=== PATIENT | female | born 1970 | race Caucasian/White ===

== ENCOUNTER 2016-10-01 03:50 | Emergency (ER) | payer OTHER ==
[~2016-10-01] VITALS: Ht 175.3 cm; Wt 68.0 kg
[~2016-10-01 03:50] MED LIST: ADVIL LIQUI-GE200 MG PO; AUGMENTIN 875-1 EACH PO; DIPHENHYDRAMINE25 MG PO; FERROUS SULFAT325 MG PO; FLOVENT DISKUS50 MCG INH; LEVAQUIN750 MG PO; PREDNISONE20 MG PO; PROAIR HFA8.5 GM INH; PROVENTIL HFA6.7 GM INH; SUDAFED 12-HOU120 MG PO; TYLENOL325 MG PO; ZOFRAN ODT4 MG SL; ZYRTEC10 MG PO
[2016-10-01] MEDS ORDERED: ALLEGRA-D 24 H1 EACH PO (04:09)
[2016-10-01] MEDS ORDERED: LEVOTHYROXINE100 MCG PO (04:09)
[2016-10-01] MEDS ORDERED: TRAMADOL HCL50 MG PO (04:11)
== END 2016-10-01 04:30 | disposition home or self-care (01) ==
LOC: ED 03:50
DX: M75.21 Bicipital tendinitis, right shoulder (principal); J45.909 Unspecified asthma, uncomplicated; E03.9 Hypothyroidism, unspecified; F17.200 Nicotine dependence, unspecified, uncomplicated; Z90.710 Acquired absence of both cervix and uterus; Z88.5 Allergy status to narcotic agent; Z88.8 Allergy status to other drugs, medicaments and biological substances; Z79.51 Long term (current) use of inhaled steroids; Z79.899 Other long term (current) drug therapy
CPT/HCPCS: 99283

== ENCOUNTER 2019-09-21 08:46 | Emergency (ER) | payer OTHER ==
[~2019-09-21] VITALS: Ht 175.3 cm; Wt 68.0 kg
--- OUTSIDE RECORDS SUMMARY | ~2019-09-21 | XMS | Encounter Summary ---
Demographics + + + | Address | [address] | | | [place] [address] | + + + | Home Phone | | + + + | Preferred Language | Unknown | + + + | Marital Status | Single | + + + | Moravian Affiliation | Unknown | + + + | Race | Unknown | + + + | Ethnic Group | Unknown | + + + Author + + + | Author | [facility] | | | and [place] | + + + | Organization | [facility] | | | and [place] | + + + | Address | Unknown | + + + | Phone | Unavailable | + + + Support + + +---------+ + | Name | Relationship | Address | Phone | + + +---------+ + | Jac Marcum | ECON | Unknown | | + + +---------+ + | Falguni | ECON | Unknown | | | [place] | | | | + + +---------+ + Care Team Providers + +------+ + | Care Jammer Operator Name | Role | Phone | + +------+ + | Lan Smith PCP | | | MD | | | + +------+ + Encounter Details +--------+ + + + + | Date | Type | Department | Care Team | Description | +--------+ + + + + | 12/16/ | Abstract | [facility] | [place], | | | 2014 | | PULMONARY [address] | Geni Duarte MD | | | | | [place], | | | | | | [place] [address] | | | | | | [phone] | | | +--------+ + + + + Social History + + + +--------+------+ | Tobacco Use | Types | Packs/Day | Years | Date | | | | | Used | | + + + +--------+------+ | Current Every Day | Cigarettes | 0.2 | 18 | | | Smoker | | | | | + + + +--------+------+ + + | Comments: She wants to do it on her own at her own pace | + + + + +---------+ + | Alcohol Use | Drinks/Week | oz/Week | Comments | + + +---------+ + | Yes | 8 Standard drinks | 6.7 | | | | or equivalent | | | + + +---------+ + + + + | Sex Assigned at | Date Recorded | | | | + + + | Not on file | | + + + documented as of this encounter Plan of Treatment Not on filedocumented as of this encounter Procedures + +--------+ + + + | Procedure Name | Priori | Date/Time | Associated Diagnosis | Comments | | | ty | | | | + +--------+ + + + | EXTERNAL LAB: SODIUM | Routin | 08/18/2014 | | Results for this | | | e | 1:32 AM | | procedure are in the | | | | PDT | | results section. | + +--------+ + + + | EXTERNAL LAB: BUN | Routin | 08/18/2014 | | Results for this | | | e | | | procedure are in the | | | | | | results section. | + +--------+ + + + | EXTERNAL LAB: | Routin | 08/18/2014 | | Results for this | | GLUCOSE | e | | | procedure are in the | | | | | | results section. | + +--------+ + + + | EXTERNAL LAB: | Routin | 08/18/2014 | | Results for this | | TROPONIN T | e | | | procedure are in the | | | | | | results section. | + +--------+ + + + | EXTERNAL LAB: | Routin | 08/18/2014 | | Results for this | | CALCIUM | e | | | procedure are in the | | | | | | results section. | + +--------+ + + + | EXTERNAL LAB: CARBON | Routin | 08/18/2014 | | Results for this | | DIOXIDE | e | | | procedure are in the | | | | | | results section. | + +--------+ + + + | EXTERNAL LAB: | Routin | 08/18/2014 | | Results for this | | CHLORIDE | e | | | procedure are in the | | | | | | results section. | + +--------+ + + + | EXTERNAL LAB: | Routin | 08/18/2014 | | Results for this | | POTASSIUM | e | | | procedure are in the | | | | | | results section. | + +--------+ + + + | EXTERNAL LAB: CBC | Routin | 08/18/2014 | | Results for this | | | e | | | procedure are in the | | | | | | results section. | + +--------+ + + + | EXTERNAL LAB: EGFR | Routin | 08/18/2014 | | Results for this | | | e | | | procedure are in the | | | | | | results section. | + +--------+ + + + | EXTERNAL LAB: | Routin | 08/18/2014 | | Results for this | | CREATININE | e | | | procedure are in the | | | | | | results section. | + +--------+ + + + | CBC WITH | Routin | 08/18/2014 | | Results for this | | DIFFERENTIAL | e | | | procedure are in the | | | | | | results section. | + +--------+ + + + | BASIC METABOLIC | Routin | 08/18/2014 | | Results for this | | PANEL | e | | | procedure are in the | | | | | | results section. | + +--------+ + + + documented in this encounter Results External Lab: Sodium (08/18/2014 1:32 AM PDT) + +-------+ + + + | Component | Value | Ref Range | Performed | Pathologist | | | | | At | Signature | + +-------+ + + + | Sodium, | 138 | 138 - 143 | EXTERNAL | | | External | | | LAB | | + +-------+ + + + + + | Resulting Agency Comment | + + | [facility] | + + + +---------+ + + | Performing | Address | City/State/Zipcode | Phone Number | | Organization | | | | + +---------+ + + | EXTERNAL LAB | | | | + +---------+ + + CBC with Differential (08/18/2014) + +-------+ + + + | Component | Value | Ref Range | Performed | Pathologist | | | | | At | Signature | + +-------+ + + + | [facility] | 32.0 | 26.0 - 33.0 pg | | | + +-------+ + + + | [facility]CH[facility] | 33.0 | 30.0 - 36.0 % | | | + +-------+ + + + | % Basophils | 0.7 | 0.0 - 2.0 % | | | + +-------+ + + + + + | Specimen | + + | Blood specimen | | (specimen) | + + Basic Metabolic Panel (08/18/2014) + +-------+ + + + | Component | Value | Ref Range | Performed | Pathologist | | | | | At | Signature | + +-------+ + + + | Anion Gap | 10 | 7 - 21 mmol/L | [facility] | | | | | [facility] | | | [facility] | | | [facility] - | | | | | | LAB[facility]ATORY | | + +-------+ + + + | Bun/Creatin | 13.2 | 6 - 28.8 | [facility] | | ine | | | [facility] | | | | | | [facility] | | | | [facility] - | | | | | | LABORATORY | | + +-------+ + + + + + | Specimen | + + | Blood specimen | | (specimen) | + + + + + + + | Performing | Address | City/State/Zipcode | Phone Number | | Organization | | | | + + + + + | [facility] | [address] | [place] | [phone] | | [facility] | | [id number], [facility] | | | - LABORATORY | | | | + + + + + External Lab: ENRIKE (08/18/2014) + +-------+ + + + | Component | Value | Ref Range | Performed | Pathologist | | | | | At | Signature | + +-------+ + + + | ENRIKE, | 12 | 6 - 23 | EXTERNAL | | | External | | | LAB | | + +-------+ + + + + + | Resulting Agency Comment | + + | [facility] | + + + +---------+ + + | Performing | Address | City/State/Zipcode | Phone Number | | Organization | | | | + +---------+ + + | EXTERNAL LAB | | | | + +---------+ + + External Lab: Glucose (08/18/2014) + +-------+ + + + | Component | Value | Ref Range | Performed | Pathologist | | | | | At | Signature | + +-------+ + + + | Glucose, | 91 | 70 - 100 | EXTERNAL | | | External | | | LAB | | + +-------+ + + + + + | Resulting Agency Comment | + + | [facility] | + + + +---------+ + + | Performing | Address | City/State/Zipcode | Phone Number | | Organization | | | | + +---------+ + + | EXTERNAL LAB | | | | + +---------+ + + External Lab: Troponin T (08/18/2014) + +--------+ + + + | Component | Value | Ref Range | Performed | Pathologist | | | | | At | Signature | + +--------+ + + + | Troponin T, | <0.010 | 0 - 0.01 | EXTERNAL | | | External | | | LAB | | + +--------+ + + + + + | Resulting Agency Comment | + + | [facility] | + + + +---------+ + + | Performing | Address | City/State/Zipcode | Phone Number | | Organization | | | | + +---------+ + + | EXTERNAL LAB | | | | + +---------+ + + External Lab: Calcium (08/18/2014) + +-------+ + + + | Component | Value | Ref Range | Performed | Pathologist | | | | | At | Signature | + +-------+ + + + | Calcium, | 9.2 | 8.4 - 10.2 | EXTERNAL | | | External | | | LAB | | + +-------+ + + + + + | Resulting [facility] Comment | + + | [facility] | + + + +---------+ + + | Performing | Address | City/State/Zipcode | Phone Number | | Organization | | | | + +---------+ + + | EXTERNAL LAB | | | | + +---------+ + + External Lab: Carbon Dioxide (08/18/2014) + +-------+ + + + | Component | Value | Ref Range | Performed | Pathologist | | | | | At | Signature | + +-------+ + + + | Carbon | 25 | 19 - 31 | EXTERNAL | | | Dioxide, | | | LAB | | | External | | | | | + +-------+ + + + + + | Resulting Agency Comment | + + | [facility] | + + + +---------+ + + | Performing | Address | City/State/Zipcode | Phone Number | | Organization | | | | + +---------+ + + | EXTERNAL LAB | | | | + +---------+ + + External Lab: Chloride (08/18/2014) + +-------+ + + + | Component | Value | Ref Range | Performed | Pathologist | | | | | At | Signature | + +-------+ + + + | Chloride, | 107 | 95 - 112 | EXTERNAL | | | External | | | LAB | | + +-------+ + + + + + | Resulting Agency Comment | + + | [facility] | + + + +---------+ + + | Performing | Address | City/State/Zipcode | Phone Number | | Organization | | | | + +---------+ + + | EXTERNAL LAB | | | | + +---------+ + + External Lab: Potassium (08/18/2014) + +-------+ + + + | Component | Value | Ref Range | Performed | Pathologist | | | | | At | Signature | + +-------+ + + + | Potassium, | 3.6 | 3.6 - 5.1 | EXTERNAL | | | External | | | LAB | | + +-------+ + + + + + | Resulting Agency Comment | + + | [facility] | + + + +---------+ + + | Performing | Address | City/State/Zipcode | Phone Number | | Organization | | | | + +---------+ + + | EXTERNAL LAB | | | | + +---------+ + + External Lab: CBC (08/18/2014) + + + + + + | Component | Value | Ref Range | Performed | Pathologist | | | | | At | Signature | + + + + + + | WBC, | 7.7 | 4.5 - 11 | EXTERNAL | | | External | | | LAB | | + + + + + + | HGB, | 15.3 | 12 - 16 | EXTERNAL | | | External | | | LAB | | + + + + + + | HCT, | 46.8 (A) | 35 - 45 | EXTERNAL | | | External | | | LAB | | + + + + + + | PLT, | 177 | 140 - 440 | EXTERNAL | | | External | | | LAB | | + + + + + + | Neutrophils | 78 | 39 - 80 | EXTERNAL | | | %, | | | LAB | | | External | | | | | + + + + + + | Lymphocytes | 14.9 (A) | 24 - 44 | EXTERNAL | | | %, | | | LAB | | | External | | | | | + + + + + + | Monocytes | 5.3 | 0 - 12 | EXTERNAL | | | %, External | | | LAB | | + + + + + + | Eosinophils | 1.1 | 0 - 6 | EXTERNAL | | | %, | | | LAB | | | External | | | | | + + + + + + | RBC, | 4.74 | 3.8 - 5.1 | EXTERNAL | | | External | | | LAB | | + + + + + + | MCV, | 99 | 81 - 99 | EXTERNAL | | | External | | | LAB | | + + + + + + | RDW, | 13.5 | 10.5 - 15 | EXTERNAL | | | External | | | LAB | | + + + + + + + + | Resulting Agency Comment | + + | [facility] | + + + +---------+ + + | Performing | Address | City/State/Zipcode | Phone Number | | Organization | | | | + +---------+ + + | EXTERNAL LAB | | | | + +---------+ + + External Lab: eGFR (08/18/2014) + +-------+ + + + | Component | Value | Ref Range | Performed | Pathologist | | | | | At | Signature | + +-------+ + + + | eGFR, | 68 | | EXTERNAL | | | External | | | LAB | | + +-------+ + + + + + | Specimen | + + | Blood specimen | | (specimen) | + + + + | Resulting [facility] Comment | + + | [facility] | + + + +---------+ + + | Performing | Address | City/State/Zipcode | Phone Number | | Organization | | | | + +---------+ + + | EXTERNAL LAB | | | | + +---------+ + + External Lab: Creatinine (08/18/2014) + +-------+ + + + | Component | Value | Ref Range | Performed | Pathologist | | | | | At | Signature | + +-------+ + + + | Creatinine, | 0.91 | 0.6 - 1.35 | EXTERNAL | | | External | | | LAB | | + +-------+ + + + + + | Specimen | + + | Blood specimen | | (specimen) | + + + + | Resulting Agency Comment | + + | [facility] | + + + +---------+ + + | Performing | Address | City/State/Zipcode | Phone Number | | Organization | | | | + +---------+ + + | EXTERNAL LAB | | | | + +---------+ + + documented in this encounter Visit Diagnoses Not on filedocumented in this encounter"
--- OUTSIDE RECORDS SUMMARY | ~2019-09-21 | XMS | Encounter Summary ---
Demographics + + + | Address | [address] | | | [place] [address] | + + + | Home Phone | | + + + | Preferred Language | Unknown | + + + | Marital Status | Single | + + + | Temple Affiliation | Unknown | + + + | Race | Unknown | + + + | Ethnic Group | Unknown | + + + Author + + + | Author | [facility] | | | and [place] | + + + | Organization | [facility] | | | and [place] | + + + | Address | Unknown | + + + | Phone | Unavailable | + + + Support + + +---------+ + | Name | Relationship | Address | Phone | + + +---------+ + | Jac Marcum | ECON | Unknown | | + + +---------+ + | Nilda/Valdez | ECON | Unknown | | | [place] | | | | + + +---------+ + Care Team Providers + +------+ + | Care Nursing Home Administrator Name | Role | Phone | + +------+ + | Marie Hummel PA-C | PCP | | + +------+ + Reason for Visit +---------+--------+ + | Reason | Onset | Comments | | | Date | | +---------+--------+ + | Results | 06/16/ | PFTs | | | 2014 | | +---------+--------+ + Encounter Details +--------+ + + + + | Date | Type | Department | Care Team | Description | +--------+ + + + + | 06/16/ | Telephone | [facility] | [place], | Results (PFTs) | | 2014 | | PULMONARY [address] | Geni Duarte MD | | | | | [place], | | | | | | [place] [address] | | | | | | [phone] | | | +--------+ + + + [...] + + documented as of this encounter Miscellaneous Notes Telephone Encounter - Ting Bejarano RN - 06/17/2014 9:04 AM PDTCalled Kimmy and nani yed this message. Okay per patient. She will start the Flovent and call if not covered by he r insurance. elephon e Encounter - Geni Mims MD - 06/16/2014 11:38 AM PDTPlease let the patient know her PFTs are consistent with asthma. She has obstruction before albuterol, and not after wi th a significant response to the albuterol (I defer with the reading). Pulmonary function tests were performed on May 31, 2014 and were reviewed and interpreted in clinic today. They show moderate obstruction prior to administration of inhaled broncho dilator and are technically normal after administration of inhaled bronchodilator with a sig nificant increase in FEV1 with administration of albuterol. Lung volumes are normal and diff usion capacity is mildly reduced. I would like her to start on an inhaled steroid to see if this helps her symptoms in additi on to the Ventolin. The Ventolin she will continue to use as needed. The inhaled steroid she will use twice daily, and she must rinse her mouth after use. I am ordering Flovent 220mcg 1 inhalation twice daily. If her insurance does not cover this, she should call as we will find an alternative. documented in t his encounter Plan of Treatment Not on filedocumented as of this encounter Visit Diagnoses Not on filedocumented in this encounter"
--- OUTSIDE RECORDS SUMMARY | ~2019-09-21 | XMS | Clinical Summary ---
Demographics + + + | Address | [address] | | | [place] [address] | + + + | Home Phone | | + + + | Preferred Language | Unknown | + + + | Marital Status | Single | + + + | Confucianism Affiliation | Unknown | + + + | Race | Unknown | + + + | Ethnic Group | Unknown | + + + Author + + + | Author | [facility] | | | and [place] | + + + | Organization | [facility] | | [...] Team Providers + +------+ + | Care Brake Lining Finisher Asbestos Name | Role | Phone | + +------+ + | Lan Smith | PCP | | | MD | | | + +------+ + Allergies + + + + + + | Active Allergy | Reactions | Severity | Noted | Comments | | | | | Date | | + + + + + + | Meperidine | Nausea And Vomiting | | 04/30/19 | | | | | | 15 | | + + + + + + | Morphine | | | 04/30/19 | | | | | | 15 | | + + + + + + Medications + + + +---------+------+------+-------+ | Medication | Sig | Dispensed | Refills | Star | End | Statu | | | | | | t | Date | s | | | | | | Date | | | + + + +---------+------+------+-------+ | albuterol | Inhale 2 puffs into | 1 | 5 | 02/2 | | Activ | | (VENTOLIN HFA) 90 | the lungs every 6 | Inhaler | | 5/20 | | e | | mcg/puff inhaler | hours as needed for | | | 15 | | | | | Wheezing or | | | | | | | | Shortness of Breath. | | | | | | + + + +---------+------+------+-------+ | fluticasone | Inhale 1 puff into | 1 | 3 | 03/2 | | Activ | | (FLOVENT HFA) 220 | the lungs 2 times | Inhaler | | 9/20 | | e | | mcg/puff inhaler | daily. | | | 15 | | | + + + +---------+------+------+-------+ | Cetirizine HCl | Take 1 capsule by | 30 | 11 | 06/0 | | Activ | | (ZYRTEC) 10 MG | mouth Daily. | capsule | | 1/20 | | e | | liqui-gel | | | | 15 | | | + + + +---------+------+------+-------+ Active Problems + + + | Problem | Noted Date | + + + | Tobacco abuse | 05/10/2014 | + + + | Pulmonary nodule seen on imaging study | 05/10/2014 | + + + | Asthma | 05/10/2014 | + + + | Fibrocystic breast disease | | + + + | Seasonal allergies | | + + + Immunizations + + + + | Name | Administration Dates | Next Due | + + + + | INFLUENZA PF 20 Y OR | 03/24/2014 | | | >,TRIVALENT | | | | RECOMBINANT | | | + + + + | PNEUMOCOCCAL | 03/24/2014 | | | POLYSACCHARIDE | | | | 23-VALENT (PPSV23) | | | + + + + | TETANUS TOXOID | 03/24/2014 | | | ABSORBED, | | | | (ADOL/ADULT) | | | + + + + Family History + + +------+ + | Medical History | Relation | Name | Comments | + + +------+ + | Allergies | Father | | | + + +------+ + | Diabetes | Father | | | + + +------+ + | Hypertension | Father | | | + + +------+ + | Arthritis | Mother | | | + + +------+ + | Diabetes | Mother | | | + + +------+ + | Hypertension | Mother | | | + + +------+ + | Thyroid disease | Mother | | | + + +------+ + | Allergies | Paternal | | | | | Grandfath | | | | | er | | | + + +------+ + | Asthma | Son | | exercise induced | + + +------+ + + +------+--------+ + | Relation | Name | Status | Comments | + +------+--------+ + | Father | | Alive | | + +------+--------+ + | Mother | | Alive | | + +------+--------+ + | Paternal Grandfather | | | | + +------+--------+ + | Son | | Alive | | + +------+--------+ + Social History + + + +--------+------+ | Tobacco Use | Types | Packs/Day | Years | Date | | | | | Used | | + + + +--------+------+ | Current Every Day | Cigarettes | 0.2 | 18 | | | Smoker | | | | | + + + +--------+------+ + + | Tobacco Cessation: Ready to Quit: Yes; Counseling Given: Yes | | Comments: She wants to do it [...] on file | | + + + Last Filed Vital Signs + + + + + | Vital Sign | Reading | Time Taken | Comments | + + + + + | Blood Pressure | 110/68 | 08/19/2014 9:30 AM | | | | | PDT | | + + + + + | Pulse | 66 | 08/19/2014 9:30 AM | | | | | PDT | | + + + + + | Temperature | 37.4 C (99.4 F) | 05/10/2014 10:27 AM | | | | | PST | | + + + + + | Respiratory Rate | 14 | 08/19/2014 9:30 AM | | | | | PDT | | + + + + + | Oxygen Saturation | 97% | 08/19/2014 9:30 AM | room air | | | | PDT | | + + + + + | Inhaled Oxygen | - | - | | | Concentration | | | | + + + + + | Weight | 66 kg (145 lb 6.4 | 08/19/2014 9:30 AM | | | | oz) | PDT | | + + + + + | Height | 170.2 cm (5' 7") | 08/19/2014 9:30 AM | | | | | PDT | | + + + + + | Body Mass Index | 22.77 | 08/19/2014 9:30 AM | | | | | PDT | | + + + + + Plan of Treatment + + + + + | Health Maintenance | Due Date | Last | Comments | | | | Done | | + + + + + | Vaccine: | | 03/24/19 | | | Dtap/Tdap/Td (1 - | 2 | 15 | | | Tdap) | | | | + + + + + | Cervical Cancer | | | | | Screening (Pap) | 3 | | | + + + + + | Breast Cancer | | | | | Screening | 8 | | | + + + + + | Vaccine: Influenza | | 03/24/19 | | | (Season Ended) | 0 | 15 | | + + + + + Results Not on filefrom Last 3 Months Insurance + +--------+ +--------+ +---------+--------+ | Payer | Benefi | Subscriber | Effect | Phone | Address | Type | | | t Plan | ID | gage | | | | | | / | | Dates | | | | | | Group | | | | | | + +--------+ +--------+ +---------+--------+ | [employer] | [employer] | [id number] | | [phone] | | Medica | | MEDICAID HMO | HEALTH | | [phone]-[id number] | 1 | | id | | | MDCD | | esent | | | | | | HMO [place] | | | | | | + +--------+ +--------+ +---------+--------+ + +--------+ +--------+ + + | Guarantor Name | Accoun | Relation to | Date | Phone | Billing Address | | | t Type | Patient | of | | | | | | | | | | + +--------+ +--------+ + + | Kimmy Marcum | Person | Self | [birth year] | [address] | | | al/Fam | | 1971 | [phone] | [address] [place] | | | desire | | | 0 (Home) | [id number] | | | | | | [phone] | | | | | | | 2 (Work) | | + +--------+ +--------+ + + Advance Directives + + + + + | Type | Date Recorded | Patient | Explanation | | | | Medication Nurse | | + + + + + | Power of | | | | | Conditioner Tumbler | | | | + + + + + | Advance | | | | | Directive | | | | + + + + +
--- OUTSIDE RECORDS SUMMARY | ~2019-09-21 | XMS | Encounter Summary ---
Demographics + + + | Address | [address] | | | [place] [address] | + + + | Home Phone | | + + + | Preferred Language | Unknown | + + + | Marital Status | Single | + + + | Scientology Affiliation | Unknown | + + + | Race | Unknown | + + + | Ethnic Group | Unknown | + + + Author + + + | Author | [facility] | | | and [place] | + + + | Organization | [facility] | | | and [place] | + [...] Team Providers + +------+ + | Care Metal Cut Off Saw Tender Name | Role | Phone | + +------+ + | Lan Smith | PCP | | | MD | | | + +------+ + Reason for Referral Diagnostic/Screening (Routine) +--------+--------+ + + + + | Status | Reason | Specialty | Diagnoses / | Referred By | Referred To | | | | | Procedures | Contact | Contact | +--------+--------+ + + + + | Closed | | Radiology | Diagnoses | | [address] | | | | | Pulmonary | [place], | [address] | | | | | nodule seen | Geni B, | [place], | | | | | on imaging | MD [address] | [place] [address] | | | | | study | [address] | Phone: | | | | | Procedures | [place], | [phone] | | | | | CT Chest wo | [place] [address] | Fax: | | | | | Contrast | | [phone] | +--------+--------+ + + + + Reason for Visit +--------+ + | Reason | Comments | +--------+ + | Other | f/u Pulmonary nodule | +--------+ + Evaluate & Treat (Routine) +--------+--------+ + + + + | Status | Reason | Specialty | Diagnoses / | Referred By | Referred To | | | | | Procedures | Contact | Contact | +--------+--------+ + + + + | Closed | | Pulmonary | Diagnoses | | Felicita, | | | | Disease / | Unspecified | Shaheed, | Geni Duarte, | | | | Pulmonology | | Marie Oliveros, | | | | | | asthma(493.9 | PA-C [address] | | | | | | 0) | [address] | | | | | | Procedures | Ave | | | | | | F/U | [place], | | | | | | | [place] | | | | | | | [address] | | | | | | | Phone: | | | | | | | [phone] | | | | | | | Fax: | | | | | | | [phone] | | +--------+--------+ + + + + Encounter Details +--------+---------+ + + + | Date | Type | Department | Care Team | Description | +--------+---------+ + + + | 08/19/ | Office | [facility] | [place], | Asthma, mild | | 2015 | Visit | PULMONARY [address] | Geni Duarte MD | persistent, | | | | [place], | | uncomplicated; | | | | [place] [address] | | Pulmonary nodule | | | | [phone] | | seen on imaging | | | | | | study; T wave | | | | | | inversion in EKG | +--------+---------+ + + + Social History + + [...] + + documented as of this encounter Last Filed Vital Signs + + + [...] + + + + | Temperature | - | - | | + + + + + [...] | | + + + + + documented in this encounter Patient Instructions Patient Instructions Geni Mims MD - 08/19/2014 9:55 AM PDTI would try nasal s ami spray or gel to help keep your nose moist to help prevent the bleeding. Have EKG done at [facility] and follow up with Dr. Smith. This may be a normal variant however. Stay on Flovent current dose. Have lab done today to check Vitamin D level. Try taking cetirizine 10mg daily. documented in this encounter Progress Notes Geni Mims MD - 08/19/2014 9:35 AM PDTFormatting of this note might be differe nt from the original. Pulmonary Follow Up HPI Kimmy Marcum is a 44 y.o. female patient of Lan Smith here today for f ollow up of a pulmonary nodule and asthma. At their last visit, we had ordered a follow up CT scan and PFTs. We then started her on Fl ovent. Since their last visit she feels like she has been doing better. She has not had an y acute illnesses. She notes that in the last month she has not had any of her episodes where she has been yadira lly short of breath or coughing a lot. She carries the albuterol with her all the time. She has not used the albuterol in the last month. She is not waking up at night with shortness o f breath. She does note that she is getting in to her allergy season and is worried she may need to use it. She is currently on a regimen of Flovent 220 mcg 1 puff twice daily for about 2 months. Baltaazr blake does feel like this medication regimen is working for them. She returns today for routine follow up. She notes she has smoking less. She notes that the gum made her cheek swell up, so she is n ot using it. She is smoking less, and working on quitting on her own. She is smoking only wh en she gets really agitated at work. She was out the other night with friends, and they had cocktails, and they were smoking, but she did not. She does not cough chronically. She does bring up some mucous. She notes he r nose has been running, and she has been sneezing. She takes Zyrtec and Benadryl when she has a hard time breathing. She does not have symptoms of heartburn or reflux. Past Medical History Past Medical History Diagnosis Date Cervical dysplasia s/p hysterectomy Pyelonephritis 03/21/2014 Fibrocystic breast disease Seasonal allergies Past Surgical History Past Surgical History Procedure Laterality Date section 1993 Hysterectomy 2000 for cervical dysplasia and pain Hernia repair 1996 or possibly prolapse as it was internal? 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 [employer] Social History Main Topics Smoking status: Current Every Day Smoker -- 0.20 packs/day for 18 years Types: Cigarettes Smokeless tobacco: None Comment: She wants to do it on her own at her own pace Alcohol Use: 4.0 oz/week 8 drink(s) per week Drug Use: No Sexual Activity: None Other Topics Concern None Social History [place]ative [place] With: her son and son's girlfriend [place] lived in: [place] Exposure to toxic chemicals: rubbing alcohol for cleaning Exposure to asbestos: no Exposure to tuberculosis: no Has had a PPD or Quantiferon before: no Has pets at home: cat Has ever owned birds: no Other animal exposures: friend's dogs Hobbies: fishing, camping, horseback riding Allergies: Allergies Allergen Reactions Meperidine Nausea And Vomiting Morphine Medications: Outpatient Encounter Prescriptions as of 08/19/2014 Medication Sig Dispense Refill albuterol (VENTOLIN HFA) 90 mcg/puff inhaler Inhale 2 puffs into the lungs every 6 hour s as needed for Wheezing or Shortness of Breath. 1 Inhaler 5 fluticasone (FLOVENT HFA) 220 mcg/puff inhaler Inhale 1 puff into the lungs 2 times lea ly. 1 Inhaler 3 No facility-administered encounter medications on file as of 08/19/2014. Review of Systems: General: []Weight loss/gain (over 10 lbs) []Fever/chills/sweats []Night sweats EENT: [x]Hearing loss []Vision loss/change [x]Sinus congestion/nasal drainage [x]Nosebleeds []Hoarseness Cardiac: []Chest pain []Palpitations/heart racing []Swelling of legs/ankles []Waking up at night s hort of breath []Difficulty sleeping flat Gastrointestinal: []Nausea/vomiting []Difficulty swallowing []Heartburn/acid reflux []Loss of appetite []Abd ominal pain Urologic: []Blood in urine []Frequent urination at night []Burning/painful urination []Difficulty wit h urination Has been having shoulder pain since yesterday, seen in ER. Had some finding on her EKG as w ell, T wave inversions V1-3. Objective BP 110/68 | Pulse 66 | Resp 14 | Ht 1.702 m (5' 7") | Wt 65.953 kg (145 lb 6.4 oz) | BMI 22 .77 kg/m2 | SpO2 97% RA General Appearance: Alert, cooperative, no distress, appears stated age Head: Normocephalic, without obvious abnormality, atraumatic Eyes: PERRL, conjunctiva clear, no scleral icterus, EOM's intact Ears: Normal TM's, external auditory canals, normal acuity Nose: Nares normal, septum midline, mucosa notable for dired blood on right, edematous on l eft Mouth: No oral lesions or exudate Neck: Supple, symmetrical, no adenopathy Lungs: No accessory muscle use, breath sounds are clear to auscultation bilaterally, no w heezes, crackles or rhonchi Chest Wall: No deformity Heart: Regular rate and rhythm, no murmur, rub or gallop Abdomen: Soft, non-tender, non-distended Extremities: No cyanosis, clubbing, or edema Pulses: Radial pulses 2+ and symmetric Skin: Warm and dry Lymph nodes: Cervical and supraclavicular nodes normal Data: Pulmonary function tests were performed on May 31, 2014 and were reviewed and interpreted in clinic today. They show moderate obstruction prior to administration of inhaled bronchod ilator and are technically normal after administration of inhaled bronchodilator with a sign ificant increase in FEV1 with administration of albuterol. Lung volumes are normal and diffu ebony capacity is mildly reduced. Immunization History Administered Date(s) Administered INFLUENZA, TRIVALENT PRESERVATIVE FREE (PED/ADOL/ADULT) 03/24/2014 PNEUMOCOCCAL POLYSACCHARIDE 23-VALENT (PPSV23) 03/24/2014 TETANUS TOXOID ABSORBED, (ADOL/ADULT) 03/24/2014 Assessment ICD-9-CM 1. Asthma, mild persistent, uncomplicated 493.90 Doing well on Flovent. Having some onset o f allergy symptoms, so I recommended addition of cetirizine daily, and checking vitamin D, w ith addition of supplementation if needed (data suggests that correction of low vitamin D le vels helps control asthma and allergies). Vitamin D, 25-Hydroxy 2. Pulmonary nodule seen on imaging study 793.11 Due for follow up of 4mm nodule in [place] r, which we will do at her follow up appointment. CT Chest wo Contrast 3. T wave inversion in EKG 794.31 Seen on EKG at ER visit for should pain. Seen in up to 0. 5% of normal 44 year olds in a study quoted in a [place] population and more common in women than men. I suggested a repeat EKG to ensure lead placement accurate and it has not evolved , getting labs checked in ER to make sure no electrolyte abnormalities, and ER EKG for aneesh rison. Further follow up with PCP. ECG 12 lead Plan 1.Check vitamin D 25 [place] level. 2.Check EKG at [facility]. 3.Obtain ER EKG and labs for review and comparison. 4. Continue Flovent at current dose. 5. Take cetirizine 10mg daily. 6. Repeat chest CT scan with next visit. She was advised to call if new pulmonary symptoms were to develop. Return to clinic in January, or sooner with concerns. CC: Lan Smith MD, JOHN Moncada Portions of this report were transcribed using voice recognition software. Every effort wa s made to ensure accuracy; however, inadvertent computerized carbon capture power plant manager errors may be pre sent. documented in t his encounter Plan of Treatment + +---------+--------+ + + | Name | Type | Priori | Associated Diagnoses | Order Schedule | | | | ty | | | + +---------+--------+ + + | ECG 12 lead | ECG | Routin | T wave inversion | 1 Occurrences | | | | e | in EKG | starting 08/19/2014 | | | | | | until 08/20/2015 | + +---------+--------+ + + | CT Chest wo Contrast | Imaging | Routin | Pulmonary nodule | Expected: | | | | e | seen on imaging | 01/22/2015, Expires: | | | | | study | 08/19/2015 | + +---------+--------+ + + documented as of this encounter Procedures + +--------+ + + + | Procedure Name | Priori | Date/Time | Associated Diagnosis | Comments | | | ty | | | | + +--------+ + + + | VITAMIN D, | Routin | 08/19/2014 | Asthma, mild | Results for this | | DEFICIENCY SCREEN | e | 10:28 AM | persistent, | procedure are in the | | (25-HYDROXY) | | PDT | uncomplicated | results section. | + +--------+ + + + | LABS - EXTERNAL SCAN | | 08/18/2014 | | Results for this | | | | 12:00 AM | | procedure are in the | | | | PDT | | results section. | + +--------+ + + + | ECG - EXTERNAL SCAN | | 08/18/2014 | | Results for this | | | | 12:00 AM | | procedure are in the | | | | PDT | | results section. | + +--------+ + + + documented in this encounter Results Vitamin D, 25-Hydroxy (08/19/2014 10:28 AM PDT) + +--------+ + + + | Component | Value | Ref Range | Performed | Pathologist | | | | | At | Signature | + +--------+ + + + | Vitamin D, | 20 (L) | 30 - 80 ng/mL | [facility] | | | 25 Hydroxy | | | [facility] | [facility] - | | | | | | [facility]ATORY | | + +--------+ + + + + + | Specimen | + + | Blood | + + + + + + + | Performing | Address | City/State/Zipcode | Phone Number | | Organization | | | | + + + + + | [facility] | [address] | [place] | [phone] | | [facility] | | [address] | | | - LABORATORY | | | | + + + + + LABS - EXTERNAL SCAN (08/18/2014 12:00 AM PDT) + + + | Narrative | Performed At | + + + | Ordered by an | | | unspecified provider. | | + + + ECG - EXTERNAL SCAN (08/18/2014 12:00 AM PDT) + + + | Narrative | Performed At | + + + | Ordered by an | | | unspecified provider. | | + + + documented in this encounter Visit Diagnoses + + | Diagnosis | + + | Asthma, mild persistent, uncomplicated | + + | Pulmonary nodule seen on imaging study | + + | T wave inversion in EKG Nonspecific abnormal electrocardiogram (ECG) (EKG) | + + documented in this encounter
--- OUTSIDE RECORDS SUMMARY | ~2019-09-21 | XMS | Encounter Summary ---
Demographics + + + | Address | [address] | | | [place] [address] | + + + | Home Phone | | + + + | Preferred Language | Unknown | + + + | Marital Status | Single | + + + | Presybeterian Affiliation | Unknown | + + + | Race | Unknown | + + + | Ethnic Group | Unknown | + + + Author + + + | Author | [facility] | | | and [place] | + + + | Organization | [facility] | | | [...] Team Providers + +------+ + | Care Solar Hot Water Installer Name | Role | Phone | + +------+ + | Wero Gerard MD | PCP | | + +------+ + Encounter Details +--------+ + + + + | Date | Type | Department | Care Team | Description | +--------+ + + + + | 04/30/ | Abstract | [facility] [place] | Felicita, | | | 2014 | | PULMONARY [address] | Geni Duarte MD | | | | | [place], | | | | | | [place] [address] | | | | | | [phone] | | | +--------+ + + + + Social History + +-------+ +--------+------+ | Tobacco Use | Types | Packs/Day | Years | Date | | | | | Used | | + +-------+ +--------+------+ | Never Assessed | | | | | + +-------+ +--------+------+ + + + | Sex Assigned at | Date Recorded | | | | + + + | Not on file | | + + + documented as of this encounter Last Filed Vital Signs + + + + + | Vital Sign | Reading | Time Taken | Comments | + + + + + | Blood Pressure | 119/85 | 04/15/2014 1:00 PM | | | | | PST | | + + + + + | Pulse | 85 | 04/15/2014 1:00 PM | | | | | PST | | + + + + + | Temperature | 36.6 C (97.8 F) | 04/15/2014 1:00 PM | | | | | PST | | + + + + + | Respiratory Rate | 18 | 04/15/2014 1:00 PM | | | | | PST | | + + + + + | Oxygen Saturation | - | - | | + + + + + | Inhaled Oxygen | - | - | | | Concentration | | | | + + + + + | Weight | 64.9 kg (143 lb) | 04/15/2014 1:00 PM | | | | | PST | | + + + + + | Height | 170.2 cm (5' 7") | 04/15/2014 1:00 PM | | | | | PST | | + + + + + | Body Mass Index | 22.4 | 04/15/2014 1:00 PM | | | | | PST | | + + + + + documented in this encounter Plan of Treatment Not on filedocumented as of this encounter Visit Diagnoses Not on filedocumented in this encounter
--- OUTSIDE RECORDS SUMMARY | ~2019-09-21 | XMS | Encounter Summary ---
Demographics + + + | Address | [address] | | | [place] [address] | + + + | Home Phone | | + + + | Preferred Language | Unknown | + + + | Marital Status | Single | + + + | Confucianist Affiliation | Unknown | + + + | Race | Unknown | + + + | Ethnic Group | Unknown | + + + Author + + + | Author | [facility] | | | and [place] | + + + | Organization | [facility] | | | and [...] Team Providers + +------+ + | Care Ward Secretary Name | Role | Phone | + +------+ + | Marie Hummel PA-C | PCP | | + +------+ + Reason for Visit + +--------+ + | Reason | Onset | Comments | | | Date | | + +--------+ + | Medication Problem | 05/15/ | | | | 2014 | | + +--------+ + Encounter Details +--------+ + + + + | Date | Type | Department | Care Team | Description | +--------+ + + + + | 05/15/ | Telephone | [facility] [place] | [place], | Medication Problem | | 2014 | | PULMONARY [address] | Geni Duarte MD | | | | | [place], | | | | | | [place] [address] | | | | | | [phone] | | | +--------+ + + + [...] this encounter Miscellaneous Notes Telephone Encounter - Bela Mcclain RN - 05/15/2014 3:59 PM PSTReceived fax from [facility] [place] that ProAir is not covered by Kimmy's insurance but Ventolin is. Discussed with Dr Adams. He said it's the same medication so it would be acceptable to ask the phar [facility] to dispense Ventolin instead of ProAir. [facility] signed by Bela Mcclain RN at 05/15/2014 4:20 PM PSTdocumented in this encounter Plan of Treatment Not on filedocumented as of this encounter Visit Diagnoses Not on filedocumented in this encounter"
--- OUTSIDE RECORDS SUMMARY | ~2019-09-21 | XMS | Encounter Summary ---
Demographics + + + | Address | [address] | | | [place] [address] | + + + | Home Phone | | + + + | Preferred Language | Unknown | + + + | Marital Status | Single | + + + | Adventism Affiliation | Unknown | + + + | Race | Unknown | + + + | Ethnic Group | Unknown | + + + Author + + + | Author | [facility] | | | and Jordonana | + + + | Organization | [facility] | | | [...] Team Providers + +------+ + | Care Retail Parts Pro Name | Role | Phone | + +------+ + | Marie Hummel PA-C | PCP | | + +------+ + Reason for Visit + + + | Reason | Comments | + + + | Establish Care | | + + + Evaluate & Treat (Routine) +--------+--------+ + + + + | Status | Reason | Specialty | Diagnoses / | Referred By | Referred To | | | | | Procedures | Contact | Contact | +--------+--------+ + + + + | Closed | | Pulmonary | Diagnoses | Moustapha, | Felicita, | | | | Disease / | Solitary | Erwin | Geni Duarte, | | | | Pulmonology | pulmonary | MD Kike | [address] | | | | | nodule | [address] | | | | | Procedures | [place] | [facility] | | | | | ME OFFICE | [facility] | [place] [address] | | | | | OUTPATIENT | [place] [address] | | | | | | [address] | [address] | | | | | | MINUTES [place]- | [address] | | | | | | | Phone: | | | | | | | [phone] | | | | | | | Fax: | | | | | | | [phone] | | +--------+--------+ + + + + Encounter Details +--------+---------+ + + + | Date | Type | Department | Care Team | Description | +--------+---------+ + + + | 05/10/ | Office | [facility] [place] | [place], | Pulmonary nodule | | 2015 | Visit | PULMONARY [address] | Geni Duarte MD | seen on imaging | | | | [place], | | study (Primary Dx); | | | | [place] [address] | | Asthma, mild | | | | [phone] | | intermittent, with | | | | | | acute exacerbation; | | | | | | Tobacco abuse | +--------+---------+ + + + Social History [...] + + + | Blood Pressure | 116/82 | 05/10/2014 10:27 AM | | | | | PST | | + + + + + | Pulse | 77 | 05/10/2014 10:27 AM | | | | | PST | | + + + + + | Temperature | 37.4 C (99.4 F) | 05/10/2014 10:27 AM | | | | | PST | | + + + + + | Respiratory Rate | - | - | | + + + + + | Oxygen Saturation | 98% | 05/10/2014 10:27 AM | | | | | PST | | + + + + + | Inhaled Oxygen | - | - | | | Concentration | | | | + + + + + | Weight | 65.5 kg (144 lb 8 | 05/10/2014 10:27 AM | | | | oz) | PST | | + + + + + | Height | 170.2 cm (5' 7") | 05/10/2014 10:27 AM | | | | | PST | | + + + + + | Body Mass Index | 22.63 | 05/10/2014 10:27 AM | | | | | PST | | + + + + + documented in this encounter Patient Instructions Patient Instructions Geni Mims MD - 05/10/2014 11:32 AM PSTStart with the zahraa annette gum at the 2mg dose, and you can even try breaking them in half it is too strong. You c hew the gum until soft and then stick it in your lip. I will order breathing tests for you to have at [place]. I am going to order a ProAir inhaler for you to use 2 puffs every 6 hours as needed for the cough and shortness of breath. Take doxycycline 100mg twice daily for 7 days. Take prednisone 20mg daily for 5 days. We will plan for a repeat CT scan in about 9 months, but we will see you back in about 3 mo nths. Inhaler Use The inhaler that you were prescribed contains a potent medication. It should only be used a s directed. The medicine in your inhaler must be breathed deeply into your lungs in order fo r it to work. It will not work at all if it only reaches your mouth and throat. Follow the i nstructions below for best results. And remember to follow your Asthma Action Plan as given to you by your doctor. 1. Keep your inhaler at room temperature. 2. Hold the inhalerso that the part that goes into your mouth is at the bottom. 3. Shake the inhaler well and remove the cap. 4. Breathe out fully through your mouth. 5. Place the inhaler in your mouth and close your lips tightly around it. (Or hold the inha ler 1 to 2 inches from your open mouth if told to do so by your healthcare provider.) 6. Squeeze the inhaler as you breathe in slowly through your mouth for a few seconds, drawi ng the medicine deep into your lungs. 7. Hold your breath for up to10 seconds. Then breathe out slowly. 8. If you have been advised to take two puffs, wait one minute, then repeat steps 3-7 above . Replace the cap when done. 9. If you were prescribed both a steroid inhaler and a bronchodilator inhaler, use the bron chodilator first to open the air passages. Wait 5 minutes, then use the steroid inhaler. 10. Rinse your mouth with water and spit it out (especially after using a steroid inhaler) 11. A special chamber ( spacer ) may be prescribedthat attaches to your inhaler (Aero chamber and other brands). This increases the amount of medicine that goes to your lungs. It also improves how well each treatment works. Ask your doctor about this if you did not rece gage one. Keep It Clean Remove the metal canister and do not immerse it in water. Then clean the plastic mouthpiece , cap, and spacer if you have one, by rinsing them well in warm running water for 30 to 60 s econds. Shake off excess water and allow the mouthpiece to dry completely (overnight is anna mmended). If you need the inhaler before the mouthpiece is dry, shake off excess water, repl poly canister, and test spray two times (away from the face). This should be done once each d ay of use. This is very important if you are using a steroid inhaler in order to prevent thr ush. This is an infection that occurs in the mouth. Warning A steroid inhaler is used to prevent an asthma attack. Do not use this to treat an acute wh eezing episode. It might even make an acute attack worse. Use only bronchodilator inhalers t o treat an acute asthma attack (albuterol, Vanceril, Proventil, and others). If you find that your medicine is not working and you need to use it more often than prescr ibed, this could be a sign that your asthma is getting worse. Go to the emergency room or [facility] care right away. An asthma attack is easiest to treat in the early stages before it bec omes severe! Get Prompt Medical Attention Get prompt medical attention if any of the following occur: Increased wheezing or shortness of breath Need to use your inhalers more often than usual without relief Fever of 100.4F (38C) or higher, or as directed by your health care provider Coughing up lots of dark-colored or bloody sputum (mucus) Chest pain with each breath Blue lips or fingernails Peak flow reading less than 50 percent of your normal best [id number] [employer] [place]. [address] [place] [address], [place] [address]. All righ ts reserved. This information is not intended as a substitute for professional medical care. Always follow your healthcare professional's instructions. documented in this encounter Progress Notes Geni Mims MD - 05/10/2014 10:49 AM PSTFormatting of this note might be differe nt from the original. Pulmonary Consult Referring Provider: JOHN Blake HPI Kimmy Marcum is a 43 y.o. female patient of Marie Ace here today for evaluation of a pulmonary nodule. She notes that she they first presented with symptoms of fevers, chills, pain and vomiting. Her symptoms started on 03/16and continued to progress and on 03/21 she went in to the ER for evaluation. She was diagnosed with pyelonephritis and admitted to [facility]. T his led to a abdominal CT scan, which showed a 4mm irregular right basilar lateral nodule. Estevan hernandezanneliese have not had previous chest imaging. She did have a have follow chest x-ray done as well , which showed a right lateral basilar pulmonary nodule. They do not typically have symptoms of shortness of breath. She notes she has a cold that s he got 2 weeks ago and has had some shortness of breath and coughing. She does not typically get shortness of breath when she gets colds. Currently they are able to walk many miles at their own pace on level ground. They do not have a chronic cough. She does not typically cough for a prolonged period of ti me when she has a cold or get recurrent episodes of bronchitis. They are able to do their own bathing and dressing at home. They are able to do their own c ooking and cleaning. 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 They have not had to be hospitalized for breathing issues in the past, and have not require d intubation in the past. She has not been diagnosed with lung disease in the past. Past Medical History Past Medical History Diagnosis Date Cervical dysplasia s/p hysterectomy Pyelonephritis History of fibrocystic disease of breast Past Surgical History Past Surgical History Procedure Laterality Date section 1993 Hysterectomy 2000 for cervical dysplasia and pain Hernia repair 1997 or possibly prolapse as it was internal? 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 [employer] Social History Main Topics Smoking status: Current Every Day Smoker -- 0.20 packs/day for 18 years Types: Cigarettes Smokeless tobacco: None Comment: She wants to do it on her own at her own pace Alcohol Use: 4.0 oz/week 8 drink(s) per week Drug Use: No Sexual Activity: None Other Topics Concern None Social History Narrative Lives: in [place] With: her son and son's girlfriend G[place] up: in [place] previously lived in: [place] Exposure to toxic chemicals: rubbing alcohol for cleaning Exposure to asbestos: no Exposure to tuberculosis: no Has had a PPD or Quantiferon before: no Has pets at home: cat Has ever owned birds: no Other animal exposures: friend's dogs Hobbies: fishing, camping, horseback riding Allergies: Allergies Allergen Reactions Meperidine Nausea And Vomiting Morphine Medications: No outpatient encounter prescriptions on file as of 05/10/2014. No facility-administered encounter medications on file as of 05/10/2014. Review of Systems: General: []Weight loss/gain (over 10 lbs) []Fever/chills/sweats []Night sweats Hematologic: [x]Bleeding/bruising tendencies- Bruises easily []History of blood transfusion [x]Anemia- Since a teenager []Enlarged lymph nodes EENT: []Hearing loss []Vision loss/change [x]Sinus congestion/nasal drainage- Has seasonal a llergies to locust trees and wheat dust []Nosebleeds []Hoarseness Cardiac: [x]Chest pain- When the wind blows and she coughs a lot []Palpitations/heart racing []Swel ling of legs/ankles []Waking up at night short of breath []Difficulty sleeping flat Gastrointestinal: []Nausea/vomiting []Difficulty swallowing []Heartburn/acid reflux []Loss of appetite []Abdo hao pain Musculoskeletal: []Joint stiffness/swelling []Joint pain []Back pain []Arthritis []Gout Urologic: []Blood in urine []Frequent urination at night []Burning/painful urination []Difficulty wit h urination Neurological: []Headaches []Seizures []Memory loss or confusion []Numbness or tingling in feet or hands Psychiatric: []Depression []Anxiety/panic attacks []Suicidal ideation Sleep: []Difficulty falling asleep []Waking up at night frequently []Snoring []Stop breathing in their sleep []Fall asleep frequently, or excessively tired Objective BP 116/82 | Pulse 77 | Temp(Src) 37.4 C (99.4 F) (Tympanic) | Ht 1.702 m (5' 7") | Wt 65.545 kg (144 lb 8 oz) | BMI 22.63 kg/m2 | SpO2 98% General Appearance: Alert, cooperative, no distress, appears stated age Head: Normocephalic, without obvious abnormality, atraumatic Eyes: PERRL, conjunctiva clear, no scleral icterus, EOM's intact Ears: Normal TM's, external auditory canals, normal acuity Nose: Nares normal, septum midline, mucosa mildy edematous with some turbinate hypertrophy, dried yellow mucous Mouth: No oral lesions or exudate Neck: Supple, symmetrical, no adenopathy Lungs: No accessory muscle use, breath sounds are generally clear to auscultation bilater ally with good air movement, slightly coarse on exhalation, no wheezes, crackles or rhonchi Chest Wall: No deformity Heart: Regular rate and rhythm, no murmur, no rub or gallop Abdomen: Soft, non-tender, non-distended Extremities: No cyanosis, clubbing, or edema Pulses: Radial pulses 2+ and symmetric Skin: Warm and dry Lymph nodes: Cervical and supraclavicular nodes normal Data: Chest x-ray done March 21, 2014 was reviewed and interpreted in clinic today. It shows a 4 mm right basilar nodule. Abdominal CT scan done March 21, 2014 was reviewed and interpreted in clinic today. It sandra ws an irregular right basilar nodule that measured 5mm by my measurements. Labs: 03/23/2014 CBC normal BMP normal Urine culture lea sensitive e. coli Wero Gerard's notes were reviewed in clinic today. Immunization History Administered Date(s) Administered PNEUMOCOCCAL POLYSACCHARIDE 23-VALENT (PPSV23) 03/24/2014 TETANUS TOXOID ABSORBED, (ADOL/ADULT) 03/24/2014 TRIVALENT INFLUENZA, PRESERATIVE FREE (PED/ADOL/ADULT) 03/24/2014 Assessment 1. Pulmonary nodule seen on imaging study - 4 (5 by my measurement) mm irregular right basi lar nodule in a 43 year old smoker. Based on this, recommendation is for repeat chest CT sca n in 6-12 months, and we will do this at 9 months. 2. Asthma, mild intermittent, with acute exacerbation - Notes increased cough since recent URI. I suspect she has asthma given history of asthma and some cough and wheezing in respons e to allergens. I cannot exclude COPD given smoking history and question of some mild emphys sree on CT scan. I will treat with low dose prednisone and antibiotics. We will also start as needed albuterol and check full PFTs. 3. Tobacco abuse - Ongoing we discussed methods of quitting. She smokes very little. I sugg ested nicotine gum at 2mg dose, or even using half of a piece if she has side effects from a full piece. Plan 1. Start nicotine gum, 2mg dose, or even use 1/2 piece if having side effects. 2. Check [facility] PFTs at [facility]. 3. Start ProAir 2 puffs inhaled every 6 hours as needed. 4. Doxycycline 100mg twice daily for 7 days. 5. Prednisone 20mg daily for 5 days. 6. Repeat chest CT scan planned for 9 months from now. CC: JOHN Livingston documented in t his encounter Plan of Treatment + + +--------+ + + | Name | Type | Priori | Associated Diagnoses | Order Schedule | | | | ty | | | + + +--------+ + + | * [facility] ([facility] | Respiratory | [facility] | Asthma, mild | 1 Occurrences | | Shadia's)Pulmonary | Care | | intermittent, with | starting 05/10/2014 | | Function Testing - | | | acute exacerbation | until 05/10/2015 | | AMB Referral | | | | | + + +--------+ + + documented as of this encounter Visit Diagnoses + + | Diagnosis | + + | Pulmonary nodule seen on imaging study - Primary | + + | Asthma, mild intermittent, with acute exacerbation | + + | Tobacco abuse Tobacco use disorder | + + documented in this encounter
--- OUTSIDE RECORDS SUMMARY | ~2019-09-21 | XMS | Encounter Summary ---
Demographics + + + | Address | [address] | | | [place] [address] | + + + | Home Phone | | + + + | Preferred Language | Unknown | + + + | Marital Status | Single | + + + | Quaker Affiliation | Unknown | + + + | Race | Unknown | + + + | Ethnic Group | Unknown | + + + Author + + + | Author | [facility] | | | and Jordonana | + + + | Organization | [facility] | | | [...] Team Providers + +------+ + | Care Control Clerk Name | Role | Phone | + +------+ + | Marie Hummel PA-C | PCP | | + +------+ + Reason for Visit + +--------+ + | Reason | Onset | Comments | | | Date | | + +--------+ + | Appointment | 06/10/ | | | | 2014 | | + +--------+ + Encounter Details +--------+ + + + + | Date | Type | Department | Care Team | Description | +--------+ + + + + | 06/10/ | Telephone | [facility] | Felicita, | Appointment | | 2014 | | PULMONARY [address] | Geni Duarte MD | | | | | [place], | | | | | | [place] [address] | | | | | | [phone] | | | +--------+ + + + [...] this encounter Miscellaneous Notes Telephone Encounter - Benita Way - 06/10/2014 8:42 AM PDTSpoke with patient 05/28/14 . She has not had her PFT at [facility] yet. I asked patient to please call them to vernell bustos. documented in this e ncounter Plan of Treatment Not on filedocumented as of this encounter Visit Diagnoses Not on filedocumented in this encounter"
--- OUTSIDE RECORDS SUMMARY | ~2019-09-21 | XMS | Encounter Summary ---
Demographics + + + | Address | [address] | | | [place] [address] | + + + | Home Phone | | + + + | Preferred Language | Unknown | + + + | Marital Status | Single | + + + | Sabianism Affiliation | Unknown | + + + | Race | Unknown | + + + | Ethnic Group | Unknown | + + + Author + + + | Author | [facility] | | | and Jordonana | + + + | Organization | [facility] | | | [...] Team Providers + +------+ + | Care Boilermaker Ship Name | Role | Phone | + +------+ + | Wero Gerard MD | PCP | | + +------+ + Reason for Visit + +--------+ + | Reason | Onset | Comments | | | Date | | + +--------+ + | Appointment | 04/29/ | consult | | | 2015 | | + +--------+ + Encounter Details +--------+ + + + + | Date | Type | Department | Care Team | Description | +--------+ + + + + | 04/29/ | Telephone | [facility] [place] | Felicita, | Appointment | | 2015 | | PULMONARY [address] | Geni Duarte MD | (consult) | | | | [place], | | | | | | [place] [address] | | | | | | [phone] | | | +--------+ + + + [...] this encounter Miscellaneous Notes Telephone Encounter - Apryl Do - 04/30/2014 9:19 AM PSTPatient is scheduled f or 05-10-14. elephone Encounter - Apryl Do - 04/29/2014 4:09 PM PSTLeft voice message to schedule p atient a [facility] consult with Dr. Mims. If patient is to call back please schedule in the n ext available. documented in this encounter Plan of Treatment Not on filedocumented as of this encounter Visit Diagnoses Not on filedocumented in this encounter"
--- OUTSIDE RECORDS SUMMARY | ~2019-09-21 | XMS | Encounter Summary ---
Demographics + + + | Address | [address] | | | [place] [address] | + + + | Home Phone | | + + + | Preferred Language | Unknown | + + + | Marital Status | Single | + + + | Muslim Affiliation | Unknown | + + + | Race | Unknown | + + + | Ethnic Group | Unknown | + + + Author + + + | Author | [facility] | | | and [place] | + + + | Organization | [facility] | | | [...] Team Providers + +------+ + | Care Verifying Specialist Name | Role | Phone | + +------+ + | Lan Smith | PCP | | | MD | | | + +------+ + Reason for Visit +---------+--------+ + | Reason | Onset | Comments | | | Date | | +---------+--------+ + | Results | 08/20/ | labs | | | 2014 | | +---------+--------+ + Encounter Details +--------+ + + + + | Date | Type | Department | Care Team | Description | +--------+ + + + + | 08/20/ | Telephone | [facility] [place] | [place], | Results (labs) | | 2015 | | PULMONARY [address] | Geni Duarte MD | | | | | [place], | | | | | | [place] [address] | | | | | | [phone] | | | +--------+ + + + [...] encounter Miscellaneous Notes Telephone Encounter - Ting Bejarano, THOR - 08/20/2014 2:01 PM PDTCalled Kimmy and billyi sed per Dr Mims that the labs performed at [facility] on July look fine. Kimmy stated that she was seen for her shoulder pain at [facility] and is being sent for a heart test. docubrooke mtz in this encounter Plan of Treatment Not on filedocumented as of this encounter Visit Diagnoses Not on filedocumented in this encounter"
[~2019-09-21 08:46] MED LIST changes: +ALLEGRA-D 24 H1 EACH PO; +LEVOTHYROXINE100 MCG PO; +TRAMADOL HCL50 MG PO
[2019-09-21] MEDS ORDERED: NORCO 5-325 TA1 EACH PO (11:13)
[2019-09-21] MEDS ORDERED: PREDNISONE20 MG PO (11:13)
[2019-09-21] MEDS ORDERED: CRUTCH1 EACH MISC (11:15)
== END 2019-09-21 11:26 | disposition home or self-care (01) ==
LOC: ED 08:46
DX: M25.572 Pain in left ankle and joints of left foot (principal); E03.9 Hypothyroidism, unspecified; J45.909 Unspecified asthma, uncomplicated; F17.200 Nicotine dependence, unspecified, uncomplicated; Z88.8 Allergy status to other drugs, medicaments and biological substances; Z88.5 Allergy status to narcotic agent; Z79.899 Other long term (current) drug therapy
CPT/HCPCS: 73610; 80053; 84550; 85025; 85651; 86140; 99283-25